=== PATIENT | male | born 1990 | race Caucasian/White ===

== ENCOUNTER 2020-07-21 11:39 | Emergency (ER) | payer SELFPAY ==
[2020-07-21 11:40] VITALS: BP 149/66; PULSE 90; RESP 17; TEMP 36.3; O2SAT 96; BMI 24.9
--- NOTE | 2020-07-21 12:00 | ED.VISSUMM ---
- ER Visit Summary Date of Service: 07/21/20 Chief Complaint: Dental abscess History of Present Illness: The patient is a 29 M who presents with dental pain that has been getting worse over the past couple days. Patient states he noted a white pustule there yesterday and was able to open it. Patient states he got some drainage from the area. Patient admits to body aches. Patient denies any fevers or chills. Patient states his pain improves with drinking cold fluids and is worse with hot. Patient denies any nausea or vomiting. Physical Examination: Vital signs are stable. Patient is afebrile. Patient is in no acute distress. Oral mucosa is pink and moist. There is gingival edema around the right lower second and third molar areas. There is no fluctuance. There is no discharge or drainage. There is no sublingual or submandibular lymphadenopathy. There is no sublingual edema or erythema. There is no evidence of Mic angina. Neck is supple. Trachea is midline. There is no JVD or lymphadenopathy. Emergency Department Course and Treatment: Patient was given a dose of Pen-Vee K here. Patient was given a prescription for Pen-Vee K. Patient was instructed to take Tylenol or ibuprofen as needed for pain. Patient was instructed to follow-up with his dentist in 5 to 7 days. Patient understood and was agreeable with the plan. All questions were answered. Disposition: Discharge home Impression: Dental abscess This note was generated with [employer] dictation software. It may contain incorrect words, spelling, and punctuation that were not noted in review of the chart prior to signing ED Disposition - Plan for ED Patient: Disposition: Home or Assisted Living Diagnosis: Dental abscess Instructions: Dental Abscess Prescriptions: Penicillin V Potassium 500 mg PO 4X/DAY #40 tab Transmission Status: Received by NATALIE VAZQUEZ-[address] Referrals: Dentist,Your [STAFF PHYSICIAN] - 5-7 Days
[2020-07-21] MEDS: Penicillin Vk 250 MG Tablet 500 MG PO (12:07)
== END 2020-07-21 12:29 | disposition home or self-care (01) ==
PROVIDERS: Emergency Provider Emergency Medicine
DX: K04.7 Periapical abscess without sinus (principal)
CPT/HCPCS: 99283

== ENCOUNTER 2021-08-22 10:54 | Emergency (ER) | payer BC, SELFPAY ==
[2021-08-22 10:54] VITALS: BP 140/79; PULSE 86; RESP 18; TEMP 37.1; O2SAT 100; BMI 25.1
--- NOTE | 2021-08-22 11:52 | RAD_ITS ---
STUDY: X-RAY CHEST REASON FOR EXAM: Male, 30 years old. chest pain TECHNIQUE: AP COMPARISON: None. FINDINGS: EKG leads project over the chest. The lungs are clear and expanded. There is no demonstrated pleural abnormality. Normal size heart. Normal mediastinum and chen. Normal visualized pulmonary arteries. Normal visualized aortic arch and descending thoracic aorta. Normal visualized thoracic spine. Normal visualized ribs, clavicles, and shoulders. There is no demonstrated abnormality of the visualized soft tissue structures of the upper abdomen. RAD/Chest 1 View (Portable) IMPRESSION: Nonacute portable x-ray examination of the chest. Electronically Signed: Yang Hi MD (Brooks) at 12:20 EDT , Service support ,
--- NOTE | 2021-08-22 11:52 | EKG12_ITS ---
Test Reason : Blood Pressure : / mmHG Vent. Rate : 055 BPM Atrial Rate : 055 BPM P-R Int : 134 ms QRS Dur : 108 ms QT Int : 412 ms P-R-T Axes : 051 018 020 degrees QTc Int : 394 ms Sinus bradycardia Otherwise normal ECG Confirmed by INGRID PARSONS, TORSTEN ([id number]), electronic news gathering editor SEEMA MCKENZIE ([id number]) on 08/27/2021 10:40:03 AM Referred By: ASH Confirmed By:ROSALINA QUINTERO MD
--- NOTE | 2021-08-22 11:52 | EDS_ITS ---
HPI History of Present Illness Chief Complaint: General Illness Narrative Narrative: 30-year-old male presenting with nausea/vomiting as well as acid reflux symptoms. He states he has been experience this for the last couple of days. He does not have a history of acid reflux. Patient states that he ate pizza last night and this morning woke up feeling worse. He states that he typically does have his nausea in the morning. He is tried some [id number] medications which are not helping. Patient denies fever, chills, cough, shortness of breath. No change in taste or smell. Patient does state that sometimes epigastric pain radiates to the chest slightly. He does not have any chest pressure. He denies dizziness, lightheadedness, diaphoresis. No cardiac history. No history of DVT/PE and no risk factors. Patient states that he does not drink alcohol. He is a smoker. He denies constipation or diarrhea. PFSH PFSH Medical History no medical history Home Medications buprenorphine-naloxone 1 ea SL DAILY 07/21/20 [History Last Taken Unknown] omeprazole 40 mg PO DAILY #30 cap 08/22/21 [Rx Last Taken Unknown] Allergy/AdvReac Type Severity Reaction Status Date / Time No Known Allergies Allergy Verified 08/22/21 10:56 Surgical History no surgical history Social History Smoking Status: Current every day smoker tobacco type: cigarettes ROS ROS ED Constitutional Constitutional ED: Denies chills or fever(s) Eyes Eyes: Denies blurry vision or diplopia ENT ENT ED: Denies rhinorrhea or sore throat Cardiovascular Cardiovascular: Reports chest pain; Denies palpitations or racing heartbeat Respiratory/Chest Respiratory/Chest: Denies cough, dyspnea or sputum Gastrointestinal Gastrointestinal: Reports abdominal pain, nausea and vomiting; Denies constipation or diarrhea Genitourinary Genitourinary ED: Denies dysuria or hematuria Musculoskeletal Musculoskeletal: Denies arthralgias or myalgias Integumentary Denies Abrasions or rash Neurologic Neurologic: Denies headache(s) or paresthesias EXAM Physical Exam Const Vital Signs: 08/22/21 10:54 08/22/21 11:22 08/22/21 11:55 Temperature 98.7 F Temperature Source Temporal Pulse Rate 86 Respiratory Rate 18 Respiratory Effort Normal Non-Labored Blood Pressure 140/79 H Blood Pressure Mean 99 Pulse Ox 100 97 Oxygen Delivery Method Room Air Room Air 08/22/21 12:59 Temperature Temperature Source Pulse Rate 55 L Respiratory Rate 17 Respiratory Effort Blood Pressure 128/75 H Blood Pressure Mean 92 Pulse Ox 96 Oxygen Delivery Method Room Air Positive well nourished General Appearance ED: NAD; Negative for pallor HEENT Reports moist mucous membranes Negative for trauma Eyes PERRL and EOMs intact bilaterally General Eye ED: Negative for pale conjunctiva or scleral icterus Chest Wall inspection of chest normal and palpation of chest normal Resp normal respiratory effort and clear to auscultation bilaterally Cardio regular rate and regular rhythm GI GI Narrative: Mild epigastric tenderness. Negative Hale sign. Abdomen nonperitoneal. Extremity normal to inspection Neuro oriented x3 and CN's II-XII intact bilaterally Sensorium / Orientation: alert Psych mental status grossly normal Skin no rashes or lesions noted General Skin Exam: Negative for jaundice or pallor MDM MDM MDM Narrative Medical decision making narrative: Patient presenting with acid reflux symptoms but also complaining of some intermittent radiation to the chest. I do suspect this is likely acid reflux given the patient's symptoms worsening after eating pizza. CBC shows his white blood cell count is 5.9. Hemoglobin are stable. Platelets are normal. Renal function and electrolytes are normal. Patient's to radha bilirubin and direct bilirubin are normal. AST and ALT are slightly elevated. Alkaline phosphatase is negative. Troponin is 7. Lipase is negative. Patient given Zofran with improvement of his nausea. Patient's EKG on my interpretation shows a sinus bradycardia with a ventricular rate of 55 bpm without signs of ischemic change. Patient's chest x-ray my interpretation shows no acute cardiopulmonary process and the radiologist does agree. I do not believe that his chest pain sounds cardiac in nature. He is PERC negative. I do not believe he needs a second troponin. Patient will be started on PPI for home. He is counseled on foods to avoid. He is given follow-up with primary care. Impression: 1. Epigastric pain 2. GERD 3 chest pain noncardiac Lab Data Attestation: I reviewed the patient's lab results. Labs: Laboratory Results - last 24 hr 08/22/21 08/22/21 08/22/21 11:03 11:03 11:03 WBC 5.9 RBC 5.01 Hgb 16.0 Hct 46.6 MCV 93.0 MCH 31.9 MCHC 34.3 RDW Std Deviation 44.1 H RDW Coeff of Tor 13.0 Plt Count 142 L MPV 12.9 H Immature Gran % (Auto) 0.500 Neut % (Auto) 61.8 Lymph % (Auto) 23.8 Grayson % (Auto) 10.4 H Eos % (Auto) 3.2 Baso % (Auto) 0.3 Absolute Neuts (auto) 3.6 Absolute Lymphs (auto) 1.39 Nucleated RBC % 0 Sodium 141 Potassium 4.2 Chloride 106 Carbon Dioxide 30.0 Anion Gap 5 BUN 9 Creatinine 0.97 Estim Creat Clear Calc 117.52 Est GFR (MDRD) Af Amer 115 Est GFR (MDRD) Non-Af 95 BUN/Creatinine Ratio 9.3 L Glucose 100 Calcium 9.3 Total Bilirubin 0.70 Direct Bilirubin 0.23 AST 126 H ALT 212 H Alkaline Phosphatase 57 Troponin I High Sens 7 Total Protein 7.7 Albumin 3.8 Globulin 3.9 Lipase 60 L Radiography Diagnostic Testing: Radiology Impression Chest X-Ray 08/22/21 11:52 IMPRESSION: Nonacute portable x-ray examination of the chest. Electronically Signed: Yang Hi MD (Bro[place]) at 12:20 EDT , Service support , Discharge Plan Triage Chief Complaint: General Illness ED Provider: Kevin Salinas Dx/Rx/DC Orders Prescriptions: New omeprazole 40 mg capsule,delayed release(DR/EC) 40 mg PO DAILY Qty: 30 RF: 0 No Action buprenorphine-naloxone 1 EACH film 1 ea SL DAILY RF: 0 Primary Care Provider: Care Physician,No Primary Referrals: Tessa Mason DO [STAFF PHYSICIAN] - As Needed Care Physician,No Primary [Primary Care Provider] - Disposition Disposition: Home, Self Care
[2021-08-22 11:55] VITALS: O2SAT 97
[2021-08-22] MEDS: Ondansetron 4 MG/2 ML Vial IV (12:02)
[2021-08-22 12:04] LABS: Absolute Lymphocyte Count 1.39 X10^3/uL (0.83-4.51); Absolute Neutrophil Count 3.6 X10^3/uL (2.0-7.7); Basophil# 0.02 X10^3/uL; Basophil% 0.3 % (0-1); Eosinophil# 0.19 X10^3/uL; Eosinophils% 3.2 % (0-5); Hematocrit 46.6 % (40-54); Lymphocyte # 1.39 X10^3/ul (0.83-4.51); Lymphocyte % 23.8 % (19-41); Mean Corp Hgb Conc 34.3 g/dL (32-36); Mean Corpuscular Hgb 31.9 pg (27.0-32.0); Mean Platelet Vol. 12.9 fl (6.2-12.0); Monocyte# 0.61 X10^3/uL; Monocyte% 10.4 % (0-10); NRBC Flagged by Analyzer 0 % (0-5); Neutrophil # 3.61 X10^3/uL (2.7-7.7); Neutrophil % 61.8 % (47-70); Platelet Count 142 K/mm3 (150-450); RBC Distribution Width SD 44.1 fl (35.1-43.9); Red Blood Count 5.01 M/mm3 (4.6-6.2); White Blood Count 5.9 K/mm3 (4.4-11.0)
--- NOTE | 2021-08-22 12:04 | NURSING ---
NO OLD EKGS
[2021-08-22 12:18] LABS: Anion Gap 5 (5-15); BUN 9 mg/dL (7-18); BUN/Creat Ratio 9.3 RATIO (10-20); Calcium,Total 9.3 mg/dL (8.5-10.1); Chloride 106 mmol/L (98-107); Creatinine, Serum 0.97 mg/dL (0.70-1.30); EST Glomerular Filtration Rate 95 mL/min (>60); Est Glom Filt Rate - Afr Amer 115 mL/min (>60); Estimated Creatinine Clearance 117.52 ml/min; Glucose 100 mg/dL (74-106); Lipase 60 U/L (73-393); Potassium 4.2 mmol/L (3.5-5.1); Sodium Level 141 mmol/L (136-145); Troponin-I HS 7 pg/mL (3.0-78.0)
[2021-08-22 12:19] LABS: AST(SGOT) 126 U/L (15-37); Alanine Aminotransfer ALT/SGPT 212 U/L (16-61); Albumin, Serum 3.8 g/dL (3.2-5.0); Alkaline Phosphatase 57 U/L (45-117); Bilirubin, Direct 0.23 mg/dL (0.00-0.30); Globulin 3.9 g/dL (2.2-4.2); Protein, Total 7.7 g/dL (6.4-8.2)
[2021-08-22 12:59] VITALS: BP 128/75; PULSE 55; RESP 17; O2SAT 96
== END 2021-08-22 13:28 | disposition home or self-care (01) ==
PROVIDERS: Emergency Provider Student in an Organized Health Care Education/Training Program
DX: R11.2 Nausea with vomiting, unspecified (principal); R07.89 Other chest pain; R10.13 Epigastric pain; K21.9 Gastro-esophageal reflux disease without esophagitis; F17.210 Nicotine dependence, cigarettes, uncomplicated; Z79.899 Other long term (current) drug therapy
CPT/HCPCS: 71045; 80048; 80076; 83690; 84484; 85025; 93005; 96374; 99283; A4216; J2405